=== PATIENT | female | born 1980 | race Caucasian/White ===

== ENCOUNTER 2024-08-23 23:51 | Emergency (ER) | payer BC, MEDICAID, SELFPAY ==
[2024-08-23 23:55] VITALS: BP 123/74; PULSE 96; RESP 16; TEMP 37.2; O2SAT 97
[2024-08-24 00:13] VITALS: PULSE 102; O2SAT 98; BMI 39.8
--- NOTE | 2024-08-24 00:21 | PC.NURSE ---
PT BIB [facility] FOR BEING UNCONSCIOUS, POSSIBLE VOMIT OF BLOOD UNSURE IT WAS BLOOD, PT ADMITTED TO DRINKING ALCOHOL UNSURE WHY SHE IS HERE. AAOX4, PT IS VERY EMOTIONAL AND CRYING STATING SHE SUFFERS FROM PTSD AND BATTERED WOMENS. SHE KEEPS REPEATING SHE DOES NOT KNOW WHY THEY CALLED OR WHY SHE IS HERE. SHE STATES THAT SHE THOUGHT SHE WAS THROWING UP BLOOD WHAT SHE DRANK WAS GREEN NOT RED.
[2024-08-24 00:28] VITALS: BP 131/90; PULSE 92; RESP 16; TEMP 37.2; O2SAT 97
[2024-08-24 01:38] LABS: Basophils # (Auto) 0.1 Thou/mm3 (0.0-0.2); Basophils % (Auto) 1 % (0-2.5); Eosinophils # (Auto) 0.1 Thou/mm3 (0.0-0.5); Eosinophils % (Auto) 1 % (0-10); Hematocrit 38.1 % (36.0-46.0); Hemoglobin 14.2 g/dL (12.0-16.0); Immature Granulocytes % (Auto) 1 % (0-0); Immature Granulocytes Auto 0.09 Thou/mm3 (0.00-0.00); Lymphocytes # (Auto) 1.6 Thou/mm3 (1.0-4.8); Lymphocytes % (Auto) 11 % (10-50); Mean Corpuscular HGB Conc 37.3 g/dl (31.0-37.0); Mean Corpuscular Volume 86 fL (80-100); Monocytes # (Auto) 0.7 Thou/mm3 (0.0-0.8); Monocytes % (Auto) 5 % (0-12); Neutrophils # (Auto) 12.5 Thou/mm3 (1.8-7.7); Neutrophils % (Auto) 83 % (37-80); Nucleated Red Blood Cell % 0 /100 WBC (0); Platelet Count 266 Thou/mm3 (140-440); RDW Standard Deviation 37.9 fL (36.4-46.3); Red Blood Count 4.44 Miln/mm3 (4.00-5.20); White Blood Count 15.1 Thou/mm3 (3.6-11.0)
[2024-08-24 01:53] LABS: Amphetamine/Methamp Scrn,U Positive (Negative); Barbiturate Screen,Urine Negative (Negative); Benzodiazepines Screen,Urine Negative (Negative); Benzoylecgonine Screen, Ur Negative (Negative); Fentanyl Screen,Urine Negative (Negative); Opiate Screen,Urine Negative (Negative); THC Screen,Urine Negative (Negative)
[2024-08-24 02:05] LABS: Alanine Aminotransferase 32 U/L (10-49); Albumin, Serum 4.6 gm/dL (3.5-5.0); Albumin/Globulin Ratio 1.7 (1.2-2.2); Alcohol, Blood Medical 131.4 mg/dL (0-10.0); Alkaline Phosphatase 131 U/L (46-116); Anion Gap 13 (7-16); Aspartate Amino Transferase 27 U/L (0-34); BUN/Creatinine Ratio 13 Ratio (12-20); Bilirubin,Total 0.4 mg/dL (0.3-1.2); Blood Urea Nitrogen 10 mg/dL (9-23); Carbon Dioxide 24.1 mMol/L (20.0-31.0); Chloride 102 mMol/L (98-107); Creatinine (Component) 0.8 mg/dL (0.6-1.3); Estimated Creatinine Clearance 104.5 mL/min (>60); Globulin 2.7 gm/dL (2.3-3.5); Glucose 115 mg/dL (74-106); Osmolality,Calculated 277 (275-295); Sodium 139 mMol/L (136-145); Total Protein 7.3 gm/dL (5.7-8.2); eGFR > 60 See Note
--- NOTE | 2024-08-24 02:29 | PD.EDADULT ---
ED General RME/HPI General Chief complaint: General Adult/Misc Complain Stated complaint: MENTAL EVAL/INTOXICATION Time Seen by Provider: 08/24/24 00:21 Arrival date/time: 08/23/24 23:51 RME / HPI RME / HPI narrative: Dr. Rosa?s Main ED Evaluation: 44yo female with a history of CVA, TIA, mitral valve prolapse BIBA from home presents to the ED for complaints of chest and abdominal pain. Patient reports a lot of nausea and vomiting tonight, reporting she drank 3 beatboxes (liquor). Patient reports associated shortness of breath when she bends over. Patient denies any falls or injuries. Denies any fever, chills or any other associated symptoms. Related Data Home Medications ?Medication ?Instructions ?Recorded ?Confirmed LOVASTATIN 25 mg PO DAILY ##0 05/30/13 07/23/23 aspirin 81 mg chewable tablet 81 mg PO QDAY ##0 02/01/14 07/23/23 aspirin 81 mg tablet,delayed 81 mg PO DAILY 07/20/23 07/20/23 release atenolol 25 mg tablet 25 mg PO DAILY 07/20/23 07/20/23 atorvastatin 80 mg tablet 80 mg PO HS 07/20/23 07/20/23 benztropine 1 mg tablet 1 mg PO DAILY 07/20/23 07/20/23 cyclobenzaprine 10 mg tablet 10 mg PO TID 07/20/23 07/20/23 divalproex 500 mg tablet,extended 2,000 mg PO HS 07/20/23 07/23/23 release 24 hr gabapentin 300 mg capsule 300 mg PO QID 07/20/23 07/20/23 hydroxyzine pamoate 50 mg capsule 50 mg PO Q4H PRN Anxiety 07/20/23 07/20/23 ibuprofen 800 mg tablet 800 mg PO Q8HR PRN Pain 07/20/23 07/23/23 metformin 500 mg tablet 500 mg DAILY 07/20/23 07/20/23 olanzapine 20 mg tablet 20 mg DAILY 07/20/23 07/20/23 omeprazole 20 mg capsule,delayed 40 mg PO DAILY 07/20/23 07/23/23 release paroxetine HCl 40 mg tablet 40 mg PO DAILY 07/20/23 07/20/23 paroxetine HCl 40 mg tablet 40 mg PO DAILY 07/20/23 07/20/23 prazosin 1 mg capsule 1 mg PO DAILY 07/20/23 07/20/23 quetiapine 300 mg tablet 300 mg PO DAILY 07/20/23 07/23/23 Aspirin/Acetaminophen/Caffeine 1 tab PO Q8HR PRN migraine 07/23/23 07/23/23 MIGRAINE * (EXCEDRIN MIGRAINE *) albuterol sulfate 90 mcg/actuation 2 inh inhalation Q4H PRN Shortness 07/23/23 07/23/23 breath activated powder inhaler Of Breath atorvastatin 80 mg tablet 80 mg PO QDAY 07/23/23 07/23/23 budesonide 90 mcg/actuation breath 1 inh inhalation BID 07/23/23 07/23/23 activated powder inhaler (Pulmicort Flexhaler) clonidine HCl 0.1 mg tablet 0.1 mg PO Q6HR PRN Anxiety 07/23/23 07/23/23 cranberry fruit 500 mg chewable 3,600 mg PO DAILY UD 07/23/23 07/23/23 tablet famotidine 20 mg tablet 20 mg PO BID 07/23/23 07/23/23 ferrous sulfate 325 mg (65 mg 325 mg PO QDAY 07/23/23 07/23/23 iron) tablet quetiapine 50 mg tablet (Seroquel) 50 mg PO TID PRN Asystole 07/23/23 07/23/23 Allergies Allergy/AdvReac Type Severity Reaction Status Date / Time codeine Allergy Unknown Verified 08/24/24 00:12 Review of Systems Review of Systems Systems Reviewed: All systems reviewed, normal except as documented ED Exam Narrative Physical exam: GENERAL APPEARANCE: alert and oriented x 4, appears intoxicated, well-developed, well-nourished, no acute distress VITALS: All vitals were reviewed and the pulse ox is 97% on room air, which is normal according to my interpretation. HEENT: Normocephalic, atraumatic; pupils equal, round, reactive to light; EOMI; mucous membranes pink, moist; oropharynx clear NECK: Supple LUNGS: CTABL; no wheezes, no rales, no rhonchi HEART: Regular rate, regular rhythm; normal S1, S2; no murmurs ABDOMEN: non distended; normal BS; soft, no tenderness, no guarding, no rebound; no masses, no organomegaly, no hernia BACK: no CVA tenderness EXTREMITIES: atraumatic; no edema NEUROLOGIC: awake; alert and oriented x4; cranial nerves II-XII grossly intact; no focal sensory or motor deficits PSYCHIATRIC: appropriate mood and affect SKIN: warm, dry, normal color; no rashes Course Quality Measures none Orders Category Date Time Status CT head/brain wo con Stat Exams 08/24/24 05:40 Ordered XR abdomen series w chest 1V Stat Exams 08/24/24 02:30 Taken Alcohol, Blood Medical Stat Lab 08/24/24 01:27 Completed CBC Stat Lab 08/24/24 01:12 Completed CMP [Comprehensive Metabolic Panel] Stat Lab 08/24/24 01:27 Completed Drug Screen,Urine Stat Lab 08/24/24 01:27 Completed Lipase Stat Lab 08/24/24 01:27 Completed Acetaminophen Ivpb [Ofirmev Inj] Med 08/24/24 05:41 Discontinued 1,000 mg in 100 ml IV X1 Metoclopramide Inj [Reglan Inj] Med 08/24/24 03:43 Discontinued 10 mg IVP X1 ONE Ondansetron Inj [Zofran Inj] Med 08/24/24 03:03 Discontinued 4 mg IV X1 ONE Promethazine Inj [Phenergan Inj] 12.5 mg Med 08/24/24 04:56 Discontinued Sodium Chloride 0.9% [Ns] 50 ml IV X1 Sodium Chloride 0.9% 1000 ml [Ns] 1,000 ml Med 08/24/24 03:03 Discontinued IV 999 mls/hr Sodium Chloride 0.9% 1000 ml [Ns] 1,000 ml Med 08/24/24 05:11 Discontinued IV 999 mls/hr Vital Signs Vital signs: Vital Signs Temperature 98.9 F 08/23/24 23:55 Pulse Rate 96 08/23/24 23:55 Respiratory Rate 16 08/23/24 23:55 Blood Pressure 123/74 08/23/24 23:55 Pulse Oximetry (%) 97 08/23/24 23:55 Oxygen Delivery Method Room Air 08/23/24 23:55 Discharge Plan Prescriptions/Referrals Prescriptions/Med Rec: No Action LOVASTATIN 25 mg PO DAILY Qty: 0 aspirin 81 MG tablet,chewable 81 mg PO QDAY Qty: 0 cyclobenzaprine 10 mg tablet 10 mg PO TID metformin 500 mg tablet 500 mg DAILY atorvastatin 80 mg tablet 80 mg PO HS Patient Comments: TAKE ONE TABLET BY MOUTH EVERY EVENING quetiapine 300 mg tablet 300 mg PO DAILY ibuprofen 800 mg tablet 800 mg PO Q8HR PRN (Reason: Pain) prazosin 1 mg capsule 1 mg PO DAILY atenolol 25 mg tablet 25 mg PO DAILY Patient Comments: TAKE ONE TABLET BY MOUTH EVERY MORNING hydroxyzine pamoate 50 mg capsule 50 mg PO Q4H PRN (Reason: Anxiety) aspirin 81 mg tablet,delayed release (DR/EC) 81 mg PO DAILY Patient Comments: TAKE ONE TABLET BY MOUTH EVERY MORNING divalproex 500 mg tablet extended release 24 hr 2,000 mg PO HS benztropine 1 mg tablet 1 mg PO DAILY gabapentin 300 mg capsule 300 mg PO QID omeprazole 20 mg capsule,delayed release(DR/EC) 40 mg PO DAILY paroxetine HCl 40 mg tablet 40 mg PO DAILY paroxetine HCl 40 mg tablet 40 mg PO DAILY olanzapine 20 mg tablet 20 mg DAILY quetiapine [Seroquel] 50 mg Tablet 50 mg PO TID PRN (Reason: Asystole) clonidine HCl 0.1 mg Tablet 0.1 mg PO Q6HR PRN (Reason: Anxiety) famotidine 20 mg Tablet 20 mg PO BID ferrous sulfate 325 mg (65 mg iron) Tablet 325 mg PO QDAY cranberry fruit 500 mg Tablet,Chewable 3,600 mg PO DAILY UD Aspirin/Acetaminophen/Caffeine MIGRAINE * (EXCEDRIN MIGRAINE *) 1 TAB tablet 1 tab PO Q8HR PRN (Reason: migraine) Rx Instructions: 1-2 tablets PRN q8HR for migraines. Pulmicort Flexhaler 90 mcg/actuation Aerosol Powdr Breath Activated 1 inh INHALATION BID albuterol sulfate 90 mcg/actuation Aerosol Powdr Breath Activated 2 inh INHALATION Q4H PRN (Reason: Shortness Of Breath) atorvastatin 80 mg Tablet 80 mg PO QDAY Referrals: No Primary/Family,Physician [Primary Care Provider] - In 1 week Problem List Clinical Impression: Vomiting, Alcohol intoxication Patient/Caregiver Discharge Instructions Print Language: [place] MDM Narrative MDM hospital course (for use when minimal MDM required): Scribe Attestation: 08/24/24 - Noris Cornejo am scribing for and in the presence of Dr. Rosa. 0345: Patient continues to have emetic episodes. Reglan ordered. 0510: Patient continues to have emetic episodes after receiving Reglan. Phenergan and NS IVF ordered. 0540: Patient is now complaining of a headache. CT head and IV Tylenol ordered. 0600: Care signed out to Dr. Howell (emergency physician). Past medical, surgical, social and family history reviewed. Vitals and home medications reviewed. Results and treatment plan discussed. They will assume the care of the patient at this time and will follow the patient, pending CT head. Clinical Information Provided by: patient Medical Records reviewed [facility] (Per chart review, patient was admitted here on 07/19/23 for a large pleural effusion.) Meds/Rx considered, not ordered None Labs/Rad/Tests considered, not ordered None Chronic Illness/Social Conditions which may negatively complicate care or outcome(s)-explain: ETOH/drugs/substance abuse Labs Labs: Interpreted by [facility] Lab(s) Interpretation(s): WBC count is 15.1, CMP is normal, UDS is positive for methamphetamines, Blood Alcohol is 131.4, according to my interpretation. Imaging Imaging interpretation: Interpreted by [facility] Imaging Interpretation(s): CXR shows no cardiomegaly, no infiltrates, no pleural effusions, according to my interpretation. Abdominal x-ray shows normal bowel gas pattern, no evidence of obstruction, normal stool burden, according to my interpretation. Medication Administration(s) Medication Administration History Discontinued Medications Sodium Chloride (Ns) 1,000 mls @ 999 mls/hr IV .Q1H1M ONE Stop: 08/24/24 04:03 Last Infusion: 08/24/24 05:24 Dose: Infused Documented By: Admin: 08/24/24 03:29 Dose: 999 mls/hr Documented By: HERON Promethazine HCl 12.5 mg/ (Sodium Chloride) 50.5 mls @ 2.5 mls/min IV X1 ONE Stop: 08/24/24 05:16 Last Infusion: 08/24/24 05:46 Dose: Infused Documented By: Admin: 08/24/24 05:17 Dose: 2.5 mls/min Documented By: BD Sodium Chloride (Ns) 1,000 mls @ 999 mls/hr IV .Q1H1M ONE Stop: 08/24/24 06:11 Last Admin: 08/24/24 05:18 Dose: 999 mls/hr Documented By: BD Acetaminophen (Ofirmev Inj) 1,000 mg in 100 mls @ 250 mls/hr IV X1 ONE Stop: 08/24/24 06:04 Last Admin: 08/24/24 05:51 Dose: 250 mls/hr Documented By: BD Metoclopramide HCl (Metoclopramide Inj 5 Mg/Ml Vial 2 Ml) 10 mg IVP X1 ONE; Protocol Stop: 08/24/24 03:44 Last Admin: 08/24/24 04:03 Dose: 10 mg Documented By: BD Ondansetron HCl (Ondansetron Inj 2 Mg/Ml Inj 2 Ml) 4 mg IV X1 ONE Stop: 08/24/24 03:04 Last Admin: 08/24/24 03:29 Dose: 4 mg Documented By: HERON see above Diagnosis Differential Diagnosis ED Complaint MDM: gastroparesis, intractable vomiting, AGE, alcohol intoxication, drug use
--- NOTE | 2024-08-24 02:30 | XR_ITS ---
Examination: Abdominal series 3 views including upright AP chest TECHNIQUE: AP upright chest AP upright AP supine abdomen 3 views Exam date and time: August 24, 2024, 0246 hours INDICATIONS: Vomiting and nausea today. FINDINGS: No significant cardiac enlargement. Lungs are clear. Moderate air and stool throughout the colon. No obstruction No free air IMPRESSION: Moderate air and stool throughout the colon. No obstruction No free air
[2024-08-24 03:16] VITALS: BP 155/96; PULSE 103; RESP 18; TEMP 36.4; O2SAT 98
[2024-08-24] MEDS: ONDANSETRON INJ 2 MG/ML INJ 2 ML 4 MG IV (03:29)
[2024-08-24] MEDS: SODIUM CHLORIDE 0.9% 1000 ML 1,000 ML 999 ML IV ×2 (03:29→05:18)
[2024-08-24] MEDS: METOCLOPRAMIDE INJ 5 MG/ML VIAL 2 ML 10 MG IVP (04:03)
[2024-08-24] MEDS: PROMETHAZINE INJ 12.5 MG in SODIUM CHLORIDE 0.9% 50 ML 2.5 MG IV (05:17)
--- NOTE | 2024-08-24 05:40 | XR_ITS ---
Examination: CT brain head without contrast. 2-D sagittal coronal reconstructions Date and time of exam:August 24, 2024 at 0644 hours INDICATIONS: Altered mental status today CTDI: vol (mGy):80 DLP: (mGycm):1603 Technique: Multiple CT axial sections of the brain have been obtained, 5 mm slice thickness. Contrast has not been administered. 2-D sagittal, coronal reconstructions have been obtained Low dose protocols were performed. One or more of the following dose reduction techniques were used; automated exposure control, adjustment of the mA and/or KV according to patient size, use of iterative reconstruction technique. Findings: No significant ventricular enlargement. 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 No mass effect or midline shift Basal cisterns are not remarkable. Fourth ventricle is midline. Cranial vault intact. 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
[2024-08-24] MEDS: ACETAMINOPHEN IVPB 1,000 MG/100 ML VIAL 250 MG IV (05:51)
[2024-08-24 06:00] VITALS: BP 143/83; PULSE 103; RESP 16; TEMP 36.9; O2SAT 100
[2024-08-24 06:12] LABS: Lipase 38 U/L (12-53)
--- NOTE | 2024-08-24 06:21 | EDNOTE_ITS ---
Emergency Room Addendum <Rosa Henson - Last Filed: 08/24/24 12:01> Addendum Narrative: 0600: Care assumed from Dr. Rosa (emergency physician). Past medical, surgical, social and family history reviewed. Vitals and home medications reviewed. Results and treatment plan discussed. I will assume the care of the patient at this time and will follow the patient, pending CT head and reassessment. 1038: parks worker has met and evaluated with patient in the ED and had provided appropriate resources. Will DC home. Will prescribe patient clindamycin. RADIOLOGY: Ordering Physician: Shannan Rosa MD Date of Service: 08/24/24 Procedure(s): CT head/brain wo con Accession Number(s): [id number] cc: Eric Mccarthy MD; NO PRIMARY/FAMILY,PHYSICIAN; Shannan Rosa MD~ Examination: CT brain head without contrast. 2-D sagittal coronal reconstructions Date and time of exam:August 24, 2024 at 0644 hours INDICATIONS: Altered mental status today CTDI: vol (mGy):80 DLP: (mGycm):1603 Technique: Multiple CT axial sections of the brain have been obtained, 5 mm slice thickness. Contrast has not been administered. 2-D sagittal, coronal reconstructions have been obtained Low dose protocols were performed. One or more of the following dose reduction techniques were used; automated exposure control, adjustment of the mA and/or KV according to patient size, use of iterative reconstruction technique. Findings: No significant ventricular enlargement. 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 No mass effect or midline shift Basal cisterns are not remarkable. Fourth ventricle is midline. Cranial vault intact. 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 Rosa (emergency physician). Past medical, álvarez rgical, social and family history reviewed. Vitals and home medications reviewed. Results and treatment plan discussed. I will assume the care of the patient at this time and will follow the patient, pending CT head and reassessment. 1038: parks worker has met and evaluated with patient in the ED and had provided appropriate resources. Will DC home. RADIOLOGY: Ordering Physician: Shannan Rosa MD Date of Service: 08/24/24 Procedure(s): CT head/brain wo [facility] Accession Number(s): [id number] cc: Eric Mccarthy MD; NO PRIMARY/FAMILY,PHYSICIAN; Shannan Rosa MD~ Examination: CT brain head without contrast. 2-D sagittal coronal reconstructions Date and time of exam:August 24, 2024 at 0644 hours INDICATIONS: Altered mental status today CTDI: vol (mGy):80 DLP: (mGycm):1603 Technique: Multiple CT axial sections of the brain have been obtained, 5 mm slice thickness. Contrast has not been administered. 2-D sagittal, coronal reconstructions have been obtained Low dose protocols were performed. One or more of the following dose reduction techniques were used; automated exposure control, adjustment of the mA and/or KV according to patient size, use of iterative reconstruction technique. Findings: No significant ventricular enlargement. 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 No mass effect or midline shift Basal cisterns are not remarkable. Fourth ventricle is midline. Cranial vault intact. 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
[2024-08-24 10:32] VITALS: BP 123/97; PULSE 120; RESP 18; TEMP 36.7; O2SAT 98
--- NOTE | 2024-08-24 10:44 | PC.NURSE ---
SPOKE W/, HE WILL COME PICK HER UP.
--- NOTE | 2024-08-24 10:47 | PC.CC ---
ED Academic Coordinator assisted with providing Pt local community resources and clothing.
== END 2024-08-24 10:45 | disposition home or self-care (01) ==
PROVIDERS: Emergency Medicine; Emergency Provider Emergency Medicine
DX: F10.129 Alcohol abuse with intoxication, unspecified (principal); R11.2 Nausea with vomiting, unspecified; Z86.73 Personal history of transient ischemic attack (TIA), and cerebral infarction without residual deficits
CPT/HCPCS: 36415; 70450; 74022; 80053; 80307; 80320; 83690; 85025; 96361; 96365; 96367; 96375; 99284; J0131; J2405; J2550; J2765; J7030; G0480